=== PATIENT | male | born 1990 | race Caucasian/White ===

== ENCOUNTER 2023-10-12 13:41 | Emergency (ER) | payer BC, OTHER ==
[~2023-10-12] VITALS: Ht 172.7 cm; Wt 93.0 kg
[~2023-10-12 13:41] MED LIST: NO REPORTABLE MEDS
[2023-10-12 13:48] VITALS: BP 169/86; TEMP 98.5
[2023-10-12] MEDS ORDERED: AMOX-430 PO (14:12)
[2023-10-12 14:16] VITALS: O2SAT 99
== END 2023-10-12 14:17 | disposition home or self-care (01) ==
LOC: ER 13:56
DX: H92.02 Otalgia, left ear (principal); F17.200 Nicotine dependence, unspecified, uncomplicated

== ENCOUNTER 2023-10-14 14:35 | Emergency (ER) | payer BC ==
[~2023-10-14] VITALS: Ht 170.2 cm; Wt 90.7 kg
[~2023-10-14 14:35] MED LIST changes: +AMOX-430 PO
[2023-10-14] MEDS ORDERED: PRED20TA PO (15:33)
[2023-10-14] MEDS: predniSONE 50 MG TABLET PO ONE (15:34)
[2023-10-14 15:44] VITALS: BP 164/93; TEMP 99.2; O2SAT 99
== END 2023-10-14 15:44 | disposition home or self-care (01) ==
LOC: ER 14:37
DX: H72.90 Unspecified perforation of tympanic membrane, unspecified ear (principal); F17.200 Nicotine dependence, unspecified, uncomplicated